=== PATIENT | female | born 1975 | race Caucasian/White ===

== ENCOUNTER 2017-08-05 13:43 | Emergency (ER) | payer SELFPAY ==
[2017-08-05 13:53] VITALS: BP 131/88; PULSE 75; RESP 18; TEMP 98.2; O2SAT 98
[2017-08-05] MEDS ORDERED: Amoxicillin-Clav 875-125 mg Tab PO STA (14:42)
[2017-08-05] MEDS ORDERED: Amoxicillin-Clav 875-125 mg Tab PO ONE (15:06)
--- NOTE | 2017-08-05 15:17 | C.PDOC ---
History Of Present Illness 42 y/o female presents to ED with complaints of feeling pain to left side of face for 2 days. Pain is described as "pressure" with associated nasal discharge and reports having sinus infection 2 months ago, was given Z-pack but did not work. Patient states symptoms feel similar to past sinus infection and denies fever, visual changes, photophobia or any other complaints at this time. Time Seen by Provider: 08/05/17 13:59 Chief Complaint (Nursing): Cough, Cold, Congestion History Per: Patient History/Exam Limitations: no limitations Onset/Duration Of Symptoms: Days Current Symptoms Are (Timing): Still Present Past Medical History Reviewed: Historical Data, Nursing Documentation, Vital Signs Vital Signs: Last Vital Signs Temp 98.2 F 08/05/17 13:52 Pulse 75 08/05/17 13:52 Resp 18 08/05/17 13:52 BP 131/88 08/05/17 13:52 Pulse Ox 98 08/05/17 15:34 Surgical History: Family History: States: No Known Family Hx - Social History Hx Alcohol Use: No Hx Substance Use: No - Immunization History Hx Tetanus Toxoid Vaccination: No Hx Influenza Vaccination: No Hx Pneumococcal Vaccination: No Review Of Systems Except As Marked, All Systems Reviewed And Found Negative. Constitutional: Negative for: Fever, Chills Eyes: Negative for: Vision Change ENT: Positive for: Nose Discharge Respiratory: Negative for: Shortness of Breath Skin: Negative for: Rash Physical Exam - Physical Exam Appears: Non-toxic, No Acute Distress Skin: Normal Color, Warm, Dry, No Rash Head: Normacephalic, Tenderness (Left sided maxillary sinus ), No Swelling Eye(s): bilateral: Normal Inspection, PERRL, EOMI Ear(s): Bilateral: Normal Oral Mucosa: Moist Throat: Normal, No Erythema, No Exudate Neck: Normal ROM, Supple Chest: Symmetrical Cardiovascular: Rhythm Regular, No Friction Rub, No Murmur Respiratory: Normal Breath Sounds, No Rales, No Rhonchi, No Wheezing Neurological/Psych: Oriented x3, Normal Speech, Normal Motor, Normal Sensation Gait: Steady ED Course And Treatment O2 Sat by Pulse Oximetry: 98 (RA) Pulse Ox Interpretation: Normal Disposition - Disposition Referrals: [facility] [Outside] Disposition: HOME/ ROUTINE Disposition Time: 15:14 Condition: GOOD Additional Instructions: Follow up with the medical doctor within 1-2 days. Return if worsened. Prescriptions: Amoxicillin/Clavulanate [Augmentin 875 MG-125 MG] 1 tab PO BID #14 tab Fluticasone Propionate [Flonase] 1 actuation NS DAILY #1 bottle Ibuprofen [Motrin] 600 mg PO TID #21 tab Loratadine/Pseudoephedrine [Claritin-D 24 Hour Tablet] 1 each PO DAILY #10 tab.er.24h Instructions: Sinusitis (ED) Forms: [employer] ([employer]) - Clinical Impression Clinical Impression: Sinusitis - PA / ORGANISATION AND METHODS ANALYST / Resident Statement MD/DO has reviewed & agrees with the documentation as recorded. - Scribe Statement The provider has reviewed the documentation as recorded by the Mike Garcia All medical record entries made by the Alinaibmolly were at my direction and personally dictated by me. I have reviewed the chart and agree that the record accurately reflects my personal performance of the history, physical exam, medical decision making, and the department course for this patient. I have also personally directed, reviewed, and agree with the discharge instructions and disposition.
== END 2017-08-05 15:35 | disposition home or self-care (01) ==
LOC: C.ER 13:43
DX: J32.9 Chronic sinusitis, unspecified (principal)